=== PATIENT | male | born 1930 | race Caucasian/White ===

== ENCOUNTER 2021-02-21 17:56 | Inpatient (IN) | payer MEDICARE, OTHER ==
[2021-02-21 19:32] LABS: #Eosinphils 0.1 thou/uL (0.0-0.7); #Lymphocytes 0.9 thou/uL (1.20-3.40); #Monocytes 0.8 thou/uL (0.11-0.59); #Neutrophils 7.8 thou/uL (1.40-6.50); %Basophils 0.3 % (0.0-1.0); %Eosinophils 0.9 % (0.0-10.0); %Monocytes 8.7 % (0.0-10.0); %Neutrophils 81.1 % (42.0-75.0); Hemoglobin 17.1 g/dL (14.0-18.0); Mean Corpuscular HGB CONC 34.1 g/dL (32.0-36.0); Mean Platelet Volume 7.3 fL (7.4-10.4); Platelet Count 224 thou/uL (130-400); RBC Distribution Width 13.3 % (11.5-14.5); Red Blood Cell (RBC) Count 4.88 mill/uL (4.70-6.10); White Blood Cell (WBC) Count 9.6 thou/uL (4.8-10.8)
[2021-02-21 19:43] LABS: Bacteria/HPF None Seen HPF (None Seen); Bilirubin Negative (Negative); Blood, Urine 1+ (Negative); Clarity Clear (Clear); Glucose, Urine (Dipstick) Normal (Negative); Ketone, Urine Trace mg/dL (Negative); Leukocyte 25 Leu/uL (Negative); Nitrite Negative (Negative); Protein, Urine (Dipstick) Negative (Neg-Trace); Squamous Epithelial 0-3 HPF (0-3); Urobilinogen Normal mg/dL (Less than 2); WBC/HPF 0-3 HPF (0-3)
[2021-02-21 19:53] LABS: Anion Gap 17 mmol/L (10-20); BUN (Urea Nitrogen) 53 mg/dL (8.4-25.7); Calc. Creatinine Clearance 0 mL/min (70-130); Carbon Dioxide 24 mmol/L (23-31); Chloride 104 mmol/L (98-107); Potassium 5.5 mmol/L (3.5-5.1); Sodium 139 mmol/L (136-145)
[2021-02-21 19:54] LABS: ALT (SGPT) 56 U/L (8-55); AST (SGOT) 66 U/L (5-34); Albumin 3.8 g/dL (3.4-4.8); Alkaline Phosphatase 326 U/L (40-110); Bilirubin, Total 1.3 mg/dL (0.2-1.2); Calcium 9.5 mg/dL (7.8-10.44); Globulin 3.2 g/dL (2.4-3.5); Glucose 114 mg/dL (83-110)
[2021-02-21] MEDS ORDERED: Bacitracin 1 PK ONE (22:12)
[2021-02-21] MEDS ORDERED: Ondansetron ODT 4 MG TAB PO PRN (22:18)
[2021-02-21] MEDS ORDERED: Senokot S 8.6-50 MG TAB PO PRN (22:18)
[2021-02-21] MEDS ORDERED: Acetaminophen/Codeine 30-300mg Tablet PO PRN (22:26)
[2021-02-21 23:01] LABS: Magnesium 2.4 mg/dL (1.6-2.6)
[2021-02-21] MEDS: Sodium Chloride 0.9% 1,000 ML IV SCH (23:11)
[2021-02-21 23:13] LABS: SARS-CoV-2 NAA Rapid Test Not Detected (NotDetected)
[2021-02-22] MEDS: Acetaminophen 325 MG TAB PO PRN (04:40)
[2021-02-22 04:49] LABS: #Eosinphils 0.1 thou/uL (0.0-0.7); #Lymphocytes 0.7 thou/uL (1.20-3.40); #Monocytes 0.8 thou/uL (0.11-0.59); #Neutrophils 5.8 thou/uL (1.40-6.50); %Basophils 0.3 % (0.0-1.0); %Eosinophils 1.7 % (0.0-10.0); %Lymphocytes 9.4 % (21.0-51.0); %Monocytes 10.6 % (0.0-10.0); Hemoglobin 15.3 g/dL (14.0-18.0); Mean Corpuscular HGB CONC 33.1 g/dL (32.0-36.0); Mean Platelet Volume 7.4 fL (7.4-10.4); Platelet Count 184 thou/uL (130-400); RBC Distribution Width 13.2 % (11.5-14.5); Red Blood Cell (RBC) Count 4.49 mill/uL (4.70-6.10); White Blood Cell (WBC) Count 7.4 thou/uL (4.8-10.8)
[2021-02-22 05:09] LABS: Anion Gap 14 mmol/L (10-20); BUN (Urea Nitrogen) 43 mg/dL (8.4-25.7); Calc. Creatinine Clearance 47 mL/min (70-130); Carbon Dioxide 22 mmol/L (23-31); Chloride 108 mmol/L (98-107); Glucose 98 mg/dL (83-110); Potassium 4.7 mmol/L (3.5-5.1); Sodium 139 mmol/L (136-145)
[2021-02-22] MEDS: Metoprolol Tartrate 50 MG TAB PO SCH ×2 (08:40→20:42)
[2021-02-22] MEDS: Apixaban 2.5 MG TAB PO SCH ×2 (08:40→20:42)
[2021-02-22] MEDS: Furosemide 20 MG TAB PO SCH (08:41)
[2021-02-22] MEDS: Finasteride 5 MG TAB PO SCH (08:41)
[2021-02-22] MEDS: Sodium Chloride 0.9% 1,000 ML IV SCH (13:30)
[2021-02-22] MEDS: Ipratropium Bromide 2.5 ml Neb NEB PRN (18:46)
[2021-02-22] MEDS ORDERED: Simvastatin 20 MG TAB PO SCH (21:00)
[2021-02-23] MEDS: Ipratropium Bromide 2.5 ml Neb NEB PRN ×2 (00:53→06:33)
[2021-02-23] MEDS: Sodium Chloride 0.9% 1,000 ML IV SCH (01:31)
[2021-02-23 04:38] LABS: Anion Gap 12 mmol/L (10-20); BUN (Urea Nitrogen) 28 mg/dL (8.4-25.7); Calc. Creatinine Clearance 48 mL/min (70-130); Calcium 9.4 mg/dL (7.8-10.44); Carbon Dioxide 24 mmol/L (23-31); Chloride 107 mmol/L (98-107); Glucose 86 mg/dL (83-110); Potassium 4.7 mmol/L (3.5-5.1); Sodium 138 mmol/L (136-145)
[2021-02-23 04:41] LABS: #Eosinphils 0.2 thou/uL (0.0-0.7); #Lymphocytes 1.1 thou/uL (1.20-3.40); #Monocytes 0.6 thou/uL (0.11-0.59); #Neutrophils 4.7 thou/uL (1.40-6.50); %Basophils 0.5 % (0.0-1.0); %Eosinophils 2.7 % (0.0-10.0); %Lymphocytes 16.1 % (21.0-51.0); %Monocytes 9.4 % (0.0-10.0); %Neutrophils 71.2 % (42.0-75.0); Hemoglobin 15.9 g/dL (14.0-18.0); Mean Corpuscular HGB CONC 33.5 g/dL (32.0-36.0); Mean Corpuscular Hemoglobin 34.7 pg (27.0-31.0); Mean Platelet Volume 7.3 fL (7.4-10.4); Platelet Count 193 thou/uL (130-400); Red Blood Cell (RBC) Count 4.59 mill/uL (4.70-6.10); White Blood Cell (WBC) Count 6.6 thou/uL (4.8-10.8)
[2021-02-23 08:18] LABS: % Free PSA 15.6 % (.); Total PSA 2.7 ng/mL (0.0-4.0)
[2021-02-23] MEDS: Acetaminophen 325 MG TAB PO PRN (09:39)
[2021-02-23] MEDS: Metoprolol Tartrate 50 MG TAB PO SCH (09:39)
[2021-02-23] MEDS: Apixaban 2.5 MG TAB PO SCH (09:39)
[2021-02-23] MEDS: Finasteride 5 MG TAB PO SCH (09:39)
[2021-02-23] MEDS: Furosemide 20 MG TAB PO SCH (09:39)
[2021-02-23 13:56] VITALS: BMI 23.4
[2021-02-23 16:20] VITALS: BP 156/67; TEMP 98
== END 2021-02-23 19:30 | DRG 641 ==
LOC: ERS 17:56 → 2NO 20:32
PROVIDERS: ADMIT Internal Medicine; ATTEND Internal Medicine
DX: E87.5 Hyperkalemia (principal); N17.9 Acute kidney failure, unspecified; Z20.822 Contact with and (suspected) exposure to COVID-19; I48.0 Paroxysmal atrial fibrillation; E86.0 Dehydration; J45.909 Unspecified asthma, uncomplicated; E78.5 Hyperlipidemia, unspecified; I10 Essential (primary) hypertension; N40.0 Benign prostatic hyperplasia without lower urinary tract symptoms; Z86.718 Personal history of other venous thrombosis and embolism; Z80.49 Family history of malignant neoplasm of other genital organs; I25.2 Old myocardial infarction; Z90.49 Acquired absence of other specified parts of digestive tract; Z79.01 Long term (current) use of anticoagulants; Z79.899 Other long term (current) drug therapy; Z91.81 History of falling; S12.100D Unspecified displaced fracture of second cervical vertebra, subsequent encounter for fracture with routine healing
CPT/HCPCS: 36415; 71045; 72125; 80048; 80053; 81003; 81015; 83605; 83735; 83880; 84153; 84154; 84484; 85025; 93005; 94640; J7050; U0002

== ENCOUNTER 2021-03-12 10:31 | Outpatient (CLI) | payer MEDICARE, OTHER | END 2021-03-12 10:32 | disposition home or self-care (01) | LOC: TBSIIMAG 10:31 | PROVIDERS: ATTEND Neurological Surgery | DX: S12.9XXA Fracture of neck, unspecified, initial encounter (principal) | CPT/HCPCS: 72040 ==

== ENCOUNTER 2021-05-03 15:24 | Outpatient (CLI) | payer MEDICARE, OTHER | END 2021-05-03 15:25 | disposition home or self-care (01) | LOC: TBSIIMAG 15:24 | PROVIDERS: ATTEND Neurological Surgery | DX: S12.112A Nondisplaced Type II dens fracture, initial encounter for closed fracture (principal) | CPT/HCPCS: 72040 ==